=== PATIENT | male | born 1985 | race Caucasian/White ===

== ENCOUNTER 2017-04-17 19:41 | Inpatient (IN) | payer BC, OTHER ==
--- NOTE | 2017-04-17 19:49 | EDPHY ---
H & P Time Seen by Provider: 04/17/17 19:46 HPI/ROS: CHIEF COMPLAINT: "Uncomfortable" HISTORY OF PRESENT ILLNESS: The patient is a 31-year-old diabetic on insulin an pump who presents to the emergency department stating he feels "uncomfortable." Patient had a hard training session of rebecca leong at around 2: 30 a.m.. He returned home not feeling well. He felt as though he"went to hard. "He described mild chest discomfort. He also noted that his glucose was increasing even though he was giving himself boluses with his insulin pump. He went to urgent care. Status that he had increased glucose. They observed for period of time and sent him to the emergency department for further evaluation. EMS found the patient have a blood glucose of 346. Patient states the symptoms are similar to a previous episode of DKA. He denies any recent illness. No rash. No cough or shortness of breath. No abdominal pain, nausea or vomiting. No recent travel. REVIEW OF SYSTEMS: My complete review of systems is negative except as mentioned in the HPI. Past Medical/Surgical History: Includes diabetes Physical Exam: Vitals noted GENERAL: Well-appearing, in no acute distress, alert. HEENT: Eyes normal to inspection, normal pharynx, no signs of dehydration. NECK: [No thyromegaly, no lymphadenopathy, supple. RESPIRATORY: Clear to auscultation bilaterally, no rales, rhonchi or wheezing. CVS: Regular rate and rhythm, the patient has a 3 out of 6 systolic ejection murmur. ABDOMEN: Soft, nontender, nondistended, no organomegaly. BACK: Normal to inspection, no CVA tenderness. SKIN: Normal color, no rash, warm, dry. No pallor. EXTREMITIES: No pedal edema, no calf tenderness, no Homans sign or cords, no joint swelling. NEURO/PSYCH: Alert and oriented x3, normal mood and affect, normal motor sensory exam. Constitutional: Initial Vital Signs Temperature (C) 37.2 C 04/17/17 19:47 Heart Rate 100 04/17/17 19:47 Respiratory Rate 16 04/17/17 19:47 Blood Pressure 147/76 H 04/17/17 19:47 O2 Sat (%) 97 04/17/17 19:47 O2 Delivery Mode Room Air Allergies/Adverse Reactions: No Known Allergies Allergy (Verified 04/17/17 21:45) Home Medications: Medication Instructions Recorded Albuterol [Proventil Inhaler HFA 2 puffs IH Q4 PRN 04/17/17 (*)] Ascorbic Acid [Vitamin C 500 mg 1,000 mg PO DAILY 04/17/17 (*)] Escitalopram Oxalate [Lexapro] 20 mg PO DAILY 04/17/17 Fluticasone/Salmeter 250/50Mcg 1 puffs IH BID 04/17/17 [Advair 250/50 (*)] Insulin Pump, Patient Own 1 ea MISC AD 04/17/17 Multivitamins [Multivitamin (*)] 1 each PO DAILY 04/17/17 Medical Decision Making - Diagnostics Imaging Results: Imaging Impressions Chest X-Ray 04/17/17 19:58 Impression: No acute pulmonary disease. ED Course/Re-evaluation: In the emergency department I met EMS on arrival. I took report from the aquaculture program director. An IV was then placed in the patient has received a L of normal saline. Laboratory studies were obtained. I discussed the plan with the patient. I answered all his questions. Because the patient has a new murmur I ordered a cardiac echo. 195: Glucose 273. other labs or pain [place] [address]. The patient's sodium is low 132. Patient's anion gap is elevated 18. His CO2 is low at 17. Beta hydroxybutyrate is 2.77. EKG shows normal sinus rhythm, normal rate, normal axis, prolonged QT. There are no ST or T-wave abnormalities. I discussed the results with the patient. I answered all his questions. He is awaiting echocardiogram. I discussed case with Dr. Jarvis from the hospitalist service. Patient will be admitted to the ICU for further care. Insulin drip was started. With a echo cardiogram: Please refer the dictated report by Dr. Talya Shearer. I spoke with her on the phone. Patient is hyperdynamic which is causing some abnormal flow the mitral valve. There is no wall motion abnormality. Repeat glucose 273 and then 230. On recheck the patient's anion gap had improved to 14. His sugar was 188. His insulin drip was held per protocol. I discussed the results with the patient. Dr. Jarvis is aware. Patient will go to this PCU for his elevated troponin and further evaluation. Differential Diagnosis: My differential includes but is not limited to DKA, hyperglycemia, occult infection, endocarditis, myocarditis, bacteremia, sepsis, dehydration Critical Care Time: The patient required 35 min of critical care time. This was exclusive of any unbundled procedure. This was due to the patient's abnormal findings, DKA, initial plan for insulin drip, multiple rechecks and discussions with Dr. Jarvis. - Data Points Laboratory Results: Laboratory Results 04/17/17 19:45 04/17/17 19:45 04/17/17 04/17/17 04/17/17 20:39 20:00 19:48 WBC RBC Hgb Hct MCV MCH MCHC RDW Plt Count MPV Neut % (Auto) Lymph % (Auto) Walsh % (Auto) Eos % (Auto) Baso % (Auto) Nucleat RBC Rel Count Absolute Neuts (auto) Absolute Lymphs (auto) Absolute Monos (auto) Absolute Eos (auto) Absolute Basos (auto) Absolute Nucleated RBC Immature Gran % Seg Neutrophils % Band Neutrophils % Lymphocytes % Monocytes % Basophils % Metamyelocytes % Immature Gran # Absolute Seg Neuts Absolute Band Neuts Absolute Lymphocytes Absolute Monocytes Absolute Basophils Absolute Metamyelocyte Platelet Estimate Echinocytes Sodium Potassium Chloride Carbon Dioxide Anion Gap BUN Creatinine Estimated GFR Glucose POC Glucose 230 mg/dL H mg/dL 273 mg/dL H mg/dL (70-100) (70-100) Calcium Phosphorus Magnesium Creatine Kinase Troponin I Beta-Hydroxybutyrate Urine Color YELLOW Urine Appearance HAZY Urine pH 5.0 (5.0-7.5) Ur Specific [place] 1.021 (1.002-1.030) Urine Protein NEGATIVE (NEGATIVE) Urine Ketones 1+ H (NEGATIVE) Urine Blood NEGATIVE (NEGATIVE) Urine Nitrate NEGATIVE (NEGATIVE) Urine Bilirubin NEGATIVE (NEGATIVE) Urine Urobilinogen NEGATIVE EU EU (0.2-1.0) Ur Leukocyte Esterase NEGATIVE (NEGATIVE) Urine RBC NONE SEEN /hpf /hpf (0-3) Urine WBC 1-3 /hpf /hpf (0-3) Ur Epithelial Cells TRACE /lpf /lpf (NONE-1+) Hyaline Casts 5-15 /lpf /lpf (0-1) Urine Mucus TRACE /lpf /lpf (NONE-1+) Urine Glucose 3+ H (NEGATIVE) 04/17/17 04/17/17 04/17/17 19:45 19:45 19:15 WBC 24.27 10^3/uL H 10^3/uL (3.80-9.50) RBC 5.19 10^6/uL 10^6/uL (4.40-6.38) Hgb 15.9 g/dL g/dL (13.7-17.5) Hct 45.7 % % (40.0-51.0) MCV 88.1 fL fL (81.5-99.8) MCH 30.6 pg pg (27.9-34.1) MCHC 34.8 g/dL g/dL (32.4-36.7) RDW 12.3 % % (11.5-15.2) Plt Count 259 10^3/uL 10^3/uL (150-400) MPV 12.1 fL H fL (8.7-11.7) Neut % (Auto) Not Reported Lymph % (Auto) Not Reported Walsh % (Auto) Not Reported Eos % (Auto) Not Reported Baso % (Auto) Not Reported Nucleat RBC Rel Count 0.0 % % (0.0-0.2) Absolute Neuts (auto) Not Reported Absolute Lymphs (auto) Not Reported Absolute Monos (auto) Not Reported Absolute Eos (auto) Not Reported Absolute Basos (auto) Not Reported Absolute Nucleated RBC 0.00 10^3/uL 10^3/uL (0-0.01) Immature Gran % Not Reported Seg Neutrophils % 74 % % Band Neutrophils % 15 % % Lymphocytes % 5 % % Monocytes % 4 % % Basophils % 1 % % Metamyelocytes % 1 % % Immature Gran # Not Reported Absolute Seg Neuts 17.96 10^/uL H 10^/uL (1.70-6.50) Absolute Band Neuts 3.64 10^3/uL H 10^3/uL (0.00-0.70) Absolute Lymphocytes 1.21 10^3/uL 10^3/uL (1.00-3.00) Absolute Monocytes 0.97 10^3/uL H 10^3/uL (0.30-0.80) Absolute Basophils 0.24 10^3/uL H 10^3/uL (0.02-0.10) Absolute Metamyelocyte 0.24 10^3/mL H 10^3/mL (0.00-0.00) Platelet Estimate ADEQUATE (ADEQ) Echinocytes 1+ H Sodium 132 mEq/L L mEq/L (135-145) Potassium 4.5 mEq/L mEq/L (3.5-5.2) Chloride 97 mEq/L mEq/L (97-110) Carbon Dioxide 17 mEq/l L mEq/l (22-31) Anion Gap 18 mEq/L H mEq/L (8-16) BUN 13 mg/dL mg/dL (7-23) Creatinine 1.2 mg/dL mg/dL (0.7-1.3) Estimated GFR > 60 Glucose 273 mg/dL H mg/dL (70-100) POC Glucose Calcium 10.2 mg/dL mg/dL (8.5-10.4) Phosphorus 2.3 mg/dL L mg/dL (2.5-4.5) Magnesium 1.7 mg/dL mg/dL (1.6-2.3) Creatine Kinase Pending Troponin I Beta-Hydroxybutyrate 2.77 mmol/L H mmol/L (0.02-0.27) Urine Color Urine Appearance Urine pH Ur Specific [place] Urine Protein Urine Ketones Urine Blood Urine Nitrate Urine Bilirubin Urine Urobilinogen Ur Leukocyte Esterase Urine RBC Urine WBC Ur Epithelial Cells Hyaline Casts Urine Mucus Urine Glucose 04/17/17 19:15 WBC RBC Hgb Hct MCV MCH MCHC RDW Plt Count MPV Neut % (Auto) Lymph % (Auto) Walsh % (Auto) Eos % (Auto) Baso % (Auto) Nucleat RBC Rel Count Absolute Neuts (auto) Absolute Lymphs (auto) Absolute Monos (auto) Absolute Eos (auto) Absolute Basos (auto) Absolute Nucleated RBC Immature Gran % Seg Neutrophils % Band Neutrophils % Lymphocytes % Monocytes % Basophils % Metamyelocytes % Immature Gran # Absolute Seg Neuts Absolute Band Neuts Absolute Lymphocytes Absolute Monocytes Absolute Basophils Absolute Metamyelocyte Platelet Estimate Echinocytes Sodium Potassium Chloride Carbon Dioxide Anion Gap BUN Creatinine Estimated GFR Glucose POC Glucose Calcium Phosphorus Magnesium Creatine Kinase Troponin I 0.120 ng/mL H ng/mL (0.000-0.034) Beta-Hydroxybutyrate Urine Color Urine Appearance Urine pH Ur Specific [place] Urine Protein Urine Ketones Urine Blood Urine Nitrate Urine Bilirubin Urine Urobilinogen Ur Leukocyte Esterase Urine RBC Urine WBC Ur Epithelial Cells Hyaline Casts Urine Mucus Urine Glucose Medications Given: Insulin Human Regular 100 unit / Miscellaneous Medication 1 ea/ Sodium Chloride 101 mls @ 3 mls/hr IV EDNOW ONE PRN Reason: Protocol Stop: 04/19/17 06:25 Last Admin: 04/17/17 22:03 Dose: Not Given Discontinued Medications Sodium Chloride (Ns) 1,000 mls @ 0 mls/hr IV ONCE ONE PRN Reason: Wide Open Stop: 04/17/17 21:07 Last Admin: 04/17/17 21:41 Dose: 1,000 mls Sodium Chloride (Ns) 1,000 mls @ 0 mls/hr IV ONCE ONE PRN Reason: Wide Open Stop: 04/17/17 21:15 Last Admin: 04/17/17 21:40 Dose: Not Given Point of Care Test Results: 04/17/17 04/17/17 19:48 20:39 POC Glucose 273 H 230 H Departure - Departure Disposition: [facility] Inpatient Acute Clinical Impression: Hyperglycemia, Elevated troponin Condition: Good
[2017-04-17 19:54] LABS: PLATELET COUNT 259 10^3/uL (150-400)
--- NOTE | 2017-04-17 20:28 | CPEKG ---
Heart Rate: 90 RR Interval: 667 P-R Interval: 148 QRSD Interval: 92 QT Interval: 408 QTC Interval: 500 P [place]: 72 QRS [place]: 53 T Wave [place]: 11 EKG Severity - ABNORMAL ECG - EKG Impression: SINUS RHYTHM EKG Impression: PROLONGED QT INTERVAL Electronically Signed By: Cary Finn 17-Apr-2017 23:14:40
[2017-04-17] MEDS ORDERED: INSULIN REGULAR HUMAN 100 UNIT, COSIGN. REQUIRED 1 EA in NS 100 ML IV ONE (20:46)
[2017-04-17] MEDS ORDERED: D10W 1,000 ML IV SCH (21:00)
[2017-04-17] MEDS ORDERED: NS 1,000 ML IV ONE ×2 (21:06→21:14)
--- NOTE | 2017-04-17 22:12 | ECHO ---
[email or web address] [address] [address] Main: [phone] Fax: Transthoracic Echocardiogram Name: GYPSY NIÑO MR#: [id number] Study Date: 04/17/2017 Study Time: 08:40 PM Date of : 1985 Age: 31 year(s) Height: 165.1 cm (65 in.) Weight: 74.84 kg (165 lb.) BSA: 1.82 m2 Gender: Male Examination: Echo Indication: Chest Pain, new murmur, diabetic, incr trop Image Quality: Adequate Contrast: Requested by: Cary Finn BP: 113 mmHg/59 mmHg Heart Rate: Rhythm: Tachycardia Indication: Chest Pain, new murmur, diabetic, incr trop Procedure Staff Fire Equipment Repairer Inspector: Whitley Qiu [facility] Reading Physician: Talya Shearer Requesting Provider: Cary Finn Conclusions: Mild concentric LV hypertrophy. Global hypercontractility of the left ventricle. EF is 67 %. No regional wall motion abnormality. Moderate LVOT obstruction. Small LV cavity size.. Normal size right ventricle. Normal RV function. Chordal systolic anterior motion. There is no significant mitral valve regurgitation. Gradient thru the LVOT is 43mmHg at rest and 74mmHg with valsalva. Measurements: Chambers Valvular Assessment AV/MV Valvular Assessment TV/PV Normal Normal Normal Name Value Range Name Value Range Name Value Range Ao Monika (MM): 2.9 cm (2.2 cm-3.7 AV Vmax: 2.10 m/s (1 m/s-1.7 PV Vmax: 1.38 m/s (0.6 m/s-0.9 cm) m/s) m/s) IVSd (2D): 1.2 cm (0.6 cm-1.1 AV maxP mmHg ( - ) PV PGmax: 8 mmHg ( - ) cm) LVOT Vmax: 2.08 m/s (0.7 m/s-1.1 LVDd (2D): 4.3 cm (4.2 cm-5.9 m/s) cm) FRANCO (Vmax): 3.1 cm2 ( - ) LVDs (2D): 2.3 cm (2.1 cm-4 MV E Vmax: 0.76 m/s ( - ) cm) MV A Vmax: 0.94 m/s ( - ) LVPWd (2D): 1.0 cm (0.6 cm-1 MV E/A: 0.81 ( - ) cm) LVOTd 2.0 cm 2.0 cm mm LVEF (BP): 67 % (>=55 %) RVDd(2D): 3.0 cm (1.9 cm-3.8 cmmm) Patient: GYPSY NIÑO Study Date: 04/17/2017 Page 1 of 2 08:40 PM Continued Measurements: Chambers Valvular Assessment AV/MV Name Value Name Value LADs Lon.7 cm MV DecTime: 271 m/s LA Area: 15.1 cm2 LA Volume: 36 ml LA Volume Index: 19.8 ml/m2 Additional Vessels Name Value Ao Ascendin.9 cm Findings: Left Ventricle: Mild concentric LV hypertrophy. Global hypercontractility of the left ventricle. EF is 67 %. No regional wall motion abnormality. Moderate LVOT obstruction. Small LV cavity size.. Right Ventricle: Normal size right ventricle. Normal RV function. Left Atrium: The left atrium is normal in size. Right Atrium: The right atrium is normal in size. Mitral Valve: There is mild thickening of the mitral valve leaflets. Chordal systolic anterior motion. There is no significant mitral valve regurgitation. No mitral stenosis is present. Gradient thru the LVOT is 43mmHg at rest and 74mmHg with valsalva. Aortic Valve: The aortic valve is tri-leaflet and functions normally. There is no aortic valve regurgitation. No aortic valve stenosis is present. Tricuspid Valve: The tricuspid valve is normal in appearance and function. There is no significant tricuspid valve regurgitation. Pulmonary artery pressure is not obtained due to inadequate TR jet. Pulmonic Valve: The pulmonic valve is normal in appearance and function. There is no pulmonic regurgitation seen. Aorta: Normal size aortic root measuring 2.9 cm. Normal size ascending aorta measuring 2.9 cm. IVC: The IVC is normal sized. Pericardium: No pericardial effusion. (No Signature Object) Patient: GYPSY NIÑO Study Date: 04/17/2017 Page 2 of 2 08:40 PM [id number]
[2017-04-17] MEDS ORDERED: PROMETHAZINE HCL 25 MG/ML INJ IVP PRN (22:50)
[2017-04-17] MEDS ORDERED: diphenhydrAMINE 25 MG CAP PO PRN (22:50)
[2017-04-17] MEDS ORDERED: ONDANSETRON 4 MG/2 ML VIAL IVP PRN (22:50)
[2017-04-17] MEDS ORDERED: ACETAMINOPHEN 325 MG TAB PO PRN (22:50)
[2017-04-17] MEDS ORDERED: HYDROCODONE/APAP 5/325 TAB PO PRN (22:50)
[2017-04-17] MEDS ORDERED: LORazepam 0.5 MG TAB PO PRN (22:50)
[2017-04-17] MEDS ORDERED: NS 1,000 ML IV SCH (23:00)
[2017-04-17 23:11] LABS: CREATINE KINASE 319 IU/L (0-224)
[2017-04-18] MEDS ORDERED: D50W 25 GM/50 ML VIAL IVP PRN (01:04)
[2017-04-18] MEDS ORDERED: ALBUTEROL 3 ML DEYVIAL IH PRN (01:10)
[2017-04-18] MEDS ORDERED: INSULIN GLARGINE 100 UNITS/ML UNIT SC SCH (01:15)
--- NOTE | 2017-04-18 02:16 | GHP ---
[f rep st] HISTORY AND PHYSICAL DATE OF ADMISSION: 04/17/2017 SOURCE: Patient provides history, appears reliable. EMR reviewed and case discussed with accepting provider. CHIEF COMPLAINT: Chest tightness and shortness of breath. 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 Patient reports that keny meza was in his [employer] class. He did not stop for any breaks for water or snacks. He began to feel so me chest tightness and shortness of breath. He presented to urgent care for further evaluation. Iqra or to his arrival, patient reports that he did give himself some bolus dosing of insulin. Patient co ntinued to have rising glucose and in the emergency department he was found to have an anion gap and serum ketones. Patient denies any cough, rhinorrhea, nausea, vomiting, diarrhea. He denies any feve rs or chills. He does report some muscle soreness following his intensive training session earlier i n the day. He denies any headache, changes in vision. In the emergency department, given that patient had given himself multiple bolus dosing, he was given aggressive IV fluid hydration with a repeat BMP that showed closure of his anion gap. Patient was s ubsequently admitted to the PCU. Patient's insulin pump had continued to run until the cartridge had fully emptied and patient was out of insulin. Patient reports that his typical basal dose, total da luke dose of Humalog via pump is approximately 34 units, in addition to bolus dosing with meals. Maria C ent reports typically pretty well controlled sugars. REVIEW OF SYSTEMS: Negative, except as noted above. ALLERGIES: No known drug allergies, but patient reports that he would like to avoid narcotics and se datives due to a previous history of alcohol dependence. HOME MEDICATIONS: Humalog for his insulin pump. PAST MEDICAL HISTORY: Significant for diabetes type 2, history of anxiety, depression, asthma, and a lcohol dependence in remission for several years. PAST SURGICAL HISTORY: Significant for wisdom tooth extraction and tonsillectomy and adenoidectomy. FAMILY HISTORY: Negative for CAD or diabetes type 2. SOCIAL HISTORY: Patient quit smoking 2 years ago and quit drinking prior to that. He denies any ill icit drug use or history of IV drug use. CODE STATUS: Full. PHYSICAL EXAMINATION: VITAL SIGNS: Upon arrival to the emergency department, initially blood pressu re 147/76, heart rate in the 100s, respiratory rate 16, O2 sat 97% on room air with a temperature of 37.2. Vitals currently, blood pressure 127/66, heart rate is 96, respiratory rate 16, O2 sat is 92% on room air, with a temperature of 36.8. GENERAL: No acute distress. Very pleasant young adult gen candida. Is ambulating unassisted from the bathroom to his bed. He appears to be comfortable, in no acute distress. HEAD: Normocephalic, atraumatic. EYES: Extraocular muscles grossly intact. No sc leral icterus or conjunctival injection. Pupils equal, round, slightly decreased reactivity to light bilaterally but symmetric. ENT: Mucous membranes appear slightly dry. No oropharyngeal erythema o r exudates. Dentition intact. NECK: Supple, trachea midline. CV: Regular rate and rhythm. Sligh tly tachycardic in the 90s. No murmurs, rubs, or gallops appreciated. RESPIRATORY: Lungs are clear to auscultation bilaterally. No wheezes, rales or rhonchi. Unlabored breathing. ABDOMEN: Positiv e bowel sounds. Soft, nontender to palpation. No rebound, guarding, or masses appreciated. : No Pruitt in place. No suprapubic tenderness to palpation. EXTREMITIES: Patient without any cyanosis, clubbing, or edema. He has 2+ pedal pulses bilaterally and symmetric. MUSCULOSKELETAL: Patient ab le to sit up independently. Strength overall is 5/5 in upper and lower extremities. NEURO: Grossly nonfocal. No facial drooping. Patient awake, alert, and oriented x4. Moves all extremities. PSYC H: Patient's thought process content and questions are all appropriate. He denies any SI or HI with history of anxiety and depression. LABORATORY STUDIES: WBC 24.27, H and H 15.9 and 45.7, MCV of 88.1, platelet count is 259, no bands. Troponin 0.120, CK of 319, CK-MB is 4.43. Beta hydroxybutyrate 2.77. Sodium is 132, potassium is 4 .5, chloride 97, CO2 is 17, anion gap of 18, BUN 13, creatinine 1.2. GFR greater than 60, glucose 27 3, calcium 10.2, phosphorus 2.3, magnesium 1.7. Repeated BMP several hours after arrival to the ED: Sodium is 137, potassium is 4.3, chloride 102, anion gap 14, CO2 is 21, creatinine 1.1, GFR greater than 60, glucose 118, calcium is 9.4. UA: Specific gravity of 1.021, pH of 5.0, ketones 1+, glucose 3+, 1-3 WBCs, otherwise negative. EKG reviewed myself shows sinus rhythm in the 80s, 90s. QTc is 500. Small nonpathologic Q-waves in leads II, III. No acute ST elevations or depression. Chest x-ray image report reviewed, is normal. Echo report reviewed, showing mild concentric LV hypertrophy, global hypercontractility, left ventric le EF of 67%. No wall motion abnormalities. Moderate LVOT obstruction. ASSESSMENT AND PLAN: Pleasant 31-year-old gentleman with history of diabetes type 1, presents to the emergency department with complaints of chest tightness. 1. Diabetic ketoacidosis. Patient bolused himself multiple times prior to arrival to the emergency department, and he was given aggressive intravenous fluid hydration with closure of gap fairly rapidl y. We will continue to trend additional BMP, continue with intravenous fluids. Discussed with the p atient he had his insulin pump running until just ran out of the cartridge of Humalog. Discussed wit h patient options for bolus dosing every several hours versus use of a long-acting insulin, in additi on to bolus dosing for meals. Patient would prefer use of a long-acting. Given that patient blood s ugars currently in the 170s, and he will be made nothing by mouth, decrease his Lantus dosing down to 25 units, which we can certainly adjust and re-dose as needed. He will continue to have before meal s, at bedtime bolus dosing with a standard sliding scale. If this repeat BMP does not show any incre ase in patient's anion gap, then will plan to discontinue every 1 hour Accu-Cheks and convert to befo re meals, at bedtime. 2. Chest tightness and shortness of breath. Patient does have an elevated troponin which is possibl y related to patient's significant work out and possible early rhabdomyolysis, but likely his acute s ymptoms are related to his diabetic ketoacidosis rather than acute coronary syndrome. Patient did un dergo an urgent echocardiogram which did not show any wall motion abnormalities. There is, however, notation of left ventricular outlet obstruction. Cardiology was called from the emergency department and will follow up and continue to trend his cardiac enzymes. Patient's chest tightness and shortne ss of breath have since resolved following administration of intravenous fluid hydration. Patient in general is quite an active person and has not had any previous history of anginal-type symptoms. 3. Hyponatremia. Corrects for hyperglycemia, but also likely component of some dehydration and hypo volemia. This upon repeat BMP has resolved. 4. Leukocytosis. Patient without any evidence or symptoms consistent with an acute infectious proce ss. We will plan to repeat later in the morning after intravenous fluid hydration and then resolutio n of patient's diabetic ketoacidosis. 5. Asthma. Patient without any exacerbation. Albuterol is available as needed. 6. History of anxiety and depression. Currently patient reports symptoms controlled. No suicidal i deation/homicidal ideation. He is not on any medications for this. 7. Fluid, electrolyte, nutrition: Patient will continue to receive intravenous fluids. He is statu s post 2 L intravenous fluid bolus in the emergency department. Electrolytes will be monitored, repl ruel if needed. Patient is placed on an [employer] diet, 2200 calorie. He will be made nothing per mouth after midnight pending further followup of his cardiac enzymes. 8. Prophylaxis. Sequential compression devices, holding anticoagulation as patient is low risk and ambulating. 9. Code status is full. DISPOSITION: Patient admitted to inpatient status, initially to ICU, but this was converted to PCU s tatus as patient did not require any insulin drip. /[id number]/MODL
[2017-04-18 06:26] VITALS: O2SAT 94
[2017-04-18 06:33] LABS: PLATELET COUNT 168 10^3/uL (150-400)
[2017-04-18 06:46] LABS: CREATINE KINASE 314 IU/L (0-224)
[2017-04-18] MEDS ORDERED: ALBUTEROL 60 PUFFS/8 GM MDI IH PRN (08:30)
[2017-04-18] MEDS ORDERED: NON-FORMULARY NEW DRUG (Insulin Pump, Patient Own 1 EA) MISC SCH (08:30)
[2017-04-18] MEDS ORDERED: D50W 25 GM/50 ML SYR IVP PRN (08:37)
[2017-04-18] MEDS ORDERED: INSULIN PUMP, PATIENT OWN 1 EA MISC SCH (08:45)
[2017-04-18] MEDS ORDERED: ASCORBIC ACID 500 MG TAB PO SCH (09:00)
[2017-04-18] MEDS ORDERED: FLUTICASONE/SALMETER 250/50MCG DISKUS IH SCH (09:00)
[2017-04-18] MEDS ORDERED: ESCITALOPRAM OXALATE 10 MG TAB PO SCH (09:00)
[2017-04-18] MEDS: INSULIN LISPRO 100 UNIT/ML SC SCH ×2 (09:00→12:43)
[2017-04-18] MEDS ORDERED: NON-FORMULARY NEW DRUG (Escitalopram Oxalate [Lexapro] 20 MG) PO SCH (09:00)
[2017-04-18] MEDS ORDERED: INSULIN LISPRO 100 UNIT/ML SC ONE ×2 (10:45→11:07)
[2017-04-18 12:15] VITALS: BP 125/92; PULSE 102; RESP 15; TEMP 97.8
--- NOTE | 2017-04-18 13:57 | ASMTLACE ---
LACE Length of stay for Answers: Less than 1 day current admission Acuity / Level of Answers: Yes Care: Did the patient have an inpatient admission? Comorbidities - select Answers: Diabetes (uncontrolled or all that apply controlled) # of Emergency department Answers: 1-2 visits in the last 6 months Social determinants Answers: History of substance abuse (ETOH, street drugs, prescription drugs, etc.) Score: 8 Date Signed: 04/18/2017 01:56 PM Electronically Signed By:JESU Tan
--- NOTE | 2017-04-18 15:40 | ASDISCHSUM ---
Discharge Information Plan Status:Home with No Needs Medically Cleared to Leave:04/17/2017 Discharge Date:04/18/2017 01:52 PM CM D/C Disposition:Home, Routine, Self-Care ADT D/C Disposition:Home, Routine, Self-Care Projected Discharge Date:04/18/2017 01:52 PM Transportation at D/C:Family Discharge Delay Reason: Follow-Up Date:04/18/2017 01:52 PM Discharge Slot: Final Diagnosis: Placement Information Patient Contact Information Contact Name:STEPHANIE Relationship:Father Address: Work Phone: City: [facility] Phone: [facility]/Zip Code: Email: Financial Information Financial Class:HMO and PPO Plans Primary Plan Desc:[employer] PPO POS HMO SIG ADM Primary Plan Number:[id number] Secondary Plan Desc: Secondary Plan Number: Assessment Information Case Management Discharge Plan Note Case Management Discharge Discharge Order Complete? Answers: Yes Patient to Obtain Answers: Independently Medications Transportation Arranged Answers: Family/Friends Discharge Comments Notes: Pt was admitted with DKA. He has a hx of DM1, asthma, depression/anxiety. He is discharging home today with no CM needs. Date Signed: 04/18/2017 01:53 PM Electronically Signed By:JESU Tan LACE LACE Length of stay for Answers: Less than 1 day current admission Acuity / Level of Answers: Yes Care: Did the patient have an inpatient admission? Comorbidities - select Answers: Diabetes (uncontrolled or all that apply controlled) # of Emergency department Answers: 1-2 visits in the last 6 months Social determinants Answers: History of substance abuse (ETOH, street drugs, prescription drugs, etc.) Score: 8 Date Signed: 04/18/2017 01:56 PM Electronically Signed By:JESU Tan Intervention Information
--- NOTE | 2017-04-19 13:31 | GDS ---
[f rep st] DISCHARGE SUMMARY NEW AND ACUTE DIAGNOSES ON THIS ADMISSION: 1. Acute diabetic ketoacidosis. 2. Chest pain. 3. Hyponatremia. 4. Leukocytosis. 5. Asthma. 6. History of anxiety and depression. CONSULTATION: None. PROCEDURES: None. HOSPITAL COURSE: This is a 31-year-old male with a longstanding history of type 1 diabetes, who has an insulin pump. He was exercising vigorously and he ran out of insulin. He did not have a cartridg e with him at the time, and his glucose gael. He presented in diabetic ketoacidosis. He did not hav e a cartridge to place in his insulin pump, and he was treated with subcutaneous insulin successfully and lowered his glucose to an acceptable range. The gap closed. He initially had a leuk ocytosis of 24,000, felt to be a leukemoid reaction, but this declined to 10,000. Initial sodium was 132 secondary to his hyperglycemia, and normalized to 137. He had an episode of chest pain, and troponin level initially was elevated at 0.12, gael to 0.26, and then fell to 0.235. This was felt to be secondary to the strain of the diabetic ketoacidotic state along with impairment of renal function. A hemoglobin A1c is pending at the time of this dictation. The gentleman assured us that he would be able to obtain his insulin cartridge for his insulin pump. He was given an additional dose of lispro insulin at discharge when his glucose at that time was 168 . DISCHARGE MEDICATIONS: Continued medications are multivitamins, vitamin C, albuterol inhaler, Advair inhaler 250/50 mcg, Lexapro, and an insulin pump which he manages. PLAN: He will follow up with Tonio Tucker, his primary care provider, as needed. Note, his discharge glucose was 168 with normal electrolytes. TIME: This discharge required 40 minutes, greater than 50% to college admissions counselor and coordinate his care. /[id number]/MODL
== END 2017-04-18 13:52 | disposition home or self-care (01) | DRG 638 ==
LOC: EDUNIT# → F2W 04-18 00:22
PROVIDERS: ADMIT Internal Medicine; ATTEND Internal Medicine Pulmonary Disease
DX: E10.10 Type 1 diabetes mellitus with ketoacidosis without coma (principal); R07.9 Chest pain, unspecified; E87.1 Hypo-osmolality and hyponatremia; J45.909 Unspecified asthma, uncomplicated; F41.9 Anxiety disorder, unspecified; F32.9 Major depressive disorder, single episode, unspecified; F10.21 Alcohol dependence, in remission; D72.829 Elevated white blood cell count, unspecified; Z96.41 Presence of insulin pump (external) (internal)
CPT/HCPCS: J1815

== ENCOUNTER 2017-09-23 12:57 | Emergency (ER) | payer OTHER ==
[2017-09-23 13:12] VITALS: BP 139/71
[2017-09-23] MEDS ORDERED: PROPARACAINE/FLUORESCEIN SOD 5 ML OPHT.BTL OP ONE (13:20)
[2017-09-23] MEDS ORDERED: PROPARACAINE/FLUORESCEIN SOD 5 ML OPHT.BTL ONE (13:21)
[2017-09-23] MEDS ORDERED: PROPARACAINE 0.5% 15 ML OPHT DROP ONE (13:47)
[2017-09-23] MEDS ORDERED: ERYTHROMYCIN 0.5% 1 GM OPHT.OINT EACHEYE ONE (13:59)
--- NOTE | 2017-09-23 13:59 | EDPHY ---
H & P Stated Complaint: Right Eye Injury (Sports Related Elbow vs Face) Time Seen by Provider: 09/23/17 13:36 HPI/ROS: Chief Complaint: Right eye injury HPI: 32-year-old male states he got scratched in the eye while training at wrestling today approximately 30 min ago. Complaint some blurry vision. No prior eye injuries. Wears glasses but does not wear contacts. No headache. No loss of consciousness. ROS: 10 point Review of Systems is negative except as noted in the HPI. PMH: Type 1 diabetes Social History: No smoking, no alcohol, no recreational drug use Family History: non-contributory Physical Exam: General: Awake, alert, no acute distress Eye Exam Visual Acuity: Per nursing note EOM: Intact OU Visual [place]: Intact OU Pupil: Equal, round and reactive to light and accomodation OU External: Lids, lashes and margins normal OU Slit Lamp; Normal Conjuctiva, Iris normal, there is a large corneal defect in the 4 o'clock position, Anterior chambers clear without cells or flare, no hyphema, normal angles Fluorosceine exam: Significant uptake in the 4 o'clock position - Personal History Current Tetanus Diphtheria and Acellular Pertussis (TDAP): Yes - Medical/Surgical History Hx Asthma: Yes Hx Chronic Respiratory Disease: No Hx Diabetes: Yes Hx Cardiac Disease: No Hx Renal Disease: No Hx Cirrhosis: No Hx Alcoholism: No Hx HIV/AIDS: No Hx Splenectomy or Spleen Trauma: No Other PMH: IDDM, anxiety, Asthma - Social History Smoking Status: Former smoker Constitutional: Initial Vital Signs Temperature (C) 36.8 C 09/23/17 13:10 Heart Rate 75 09/23/17 13:10 Respiratory Rate 18 09/23/17 13:10 Blood Pressure 139/71 H 09/23/17 13:10 O2 Sat (%) 95 09/23/17 13:10 O2 Delivery Mode Room Air Allergies/Adverse Reactions: No Known Allergies Allergy (Verified 04/17/17 21:45) Home Medications: Medication Instructions Recorded Albuterol [Proventil Inhaler HFA 2 puffs IH Q4 PRN 04/17/17 (*)] Ascorbic Acid [Vitamin C 500 mg 1,000 mg PO DAILY 04/17/17 (*)] Escitalopram Oxalate [Lexapro] 20 mg PO DAILY 04/17/17 Fluticasone/Salmeter 250/50Mcg 1 puffs IH BID 04/17/17 [Advair 250/50 (*)] Insulin Pump, Patient Own 1 ea MISC AD 04/17/17 Multivitamins [Multivitamin (*)] 1 each PO DAILY 04/17/17 Medical Decision Making ED Course/Re-evaluation: Patient has a large corneal abrasion. No evidence of perforation or foreign body. He is not a contact lens wearer. Will start him on erythromycin eye ointment. He can also use proparacaine Dilaudid 0.05% 1 drop every 30 min for the next 2 days. Will refer for home follow-up with Ophthalmology. - Data Points Medications Given: Discontinued Medications Erythromycin (Erythromycin 0.5%) 1 stanley EACHEYE ONCE ONE Stop: 09/23/17 14:00 Last Admin: 09/23/17 14:04 Dose: 1 stanley Proparacaine HCl/Fluorescein Sodium (Flucaine) 2 drops OP EDNOW ONE Stop: 09/23/17 13:21 Last Admin: 09/23/17 13:45 Dose: Not Given Departure - Departure Disposition: Home, Routine, Self-Care Clinical Impression: Corneal abrasion Condition: Good Instructions: Erythromycin (Into the eye), Corneal Abrasion (ED) Additional Instructions: Apply the erythromycin ointment every 4 hr while awake. He may use 1 drop of proparacaine every 30 min while awake for the next 2 days only. You take ibuprofen, 600 mg 3 times a day for inflammation. Follow up with Ophthalmology in 2-3 days if symptoms are not improving. Referrals: Tonio Tucker DO [Primary Care Provider] - As per Instructions Sonal Ashley MD [Non Staff Provider ()] - As per Instructions
== END 2017-09-23 14:12 | disposition home or self-care (01) ==
DX: S05.01XA Injury of conjunctiva and corneal abrasion without foreign body, right eye, initial encounter (principal); J45.909 Unspecified asthma, uncomplicated; E10.9 Type 1 diabetes mellitus without complications; Z87.891 Personal history of nicotine dependence; X58.XXXA Exposure to other specified factors, initial encounter; Y99.8 Other external cause status; Y93.72 Activity, wrestling